=== PATIENT | female | born 1940 | race Caucasian/White ===

== ENCOUNTER → 2017-06-21 | Outpatient (REF) ==
[2017-06-21 19:35] LABS: THYROID STIMULATING HORMONE 1.18 uIU/mL (0.465-4.680)
== END ==
LOC: ZLAB.WCH 18:28
PROVIDERS: Internal Medicine
DX: Z01.89 Encounter for other specified special examinations (principal)

== ENCOUNTER → 2018-01-18 | Outpatient (REF) ==
[2018-01-18 17:46] LABS: THYROID STIMULATING HORMONE 0.948 uIU/mL (0.465-4.680)
== END ==
LOC: ZLAB.WCH 16:43
PROVIDERS: Internal Medicine
DX: Z01.89 Encounter for other specified special examinations (principal)

== ENCOUNTER → 2019-02-03 | Outpatient (REF) | LOC: ZLAB.WCH 15:21 | DX: Z01.89 Encounter for other specified special examinations (principal) ==

== ENCOUNTER → 2020-07-08 | Outpatient (CLI) | payer MEDICARE, OTHER | LOC: ZCOL.LAB 19:28 | DX: E61.1 Iron deficiency (principal); R94.6 Abnormal results of thyroid function studies; Z01.89 Encounter for other specified special examinations ==

== ENCOUNTER 2021-05-27 14:16 | Outpatient (CLI) | payer MEDICARE, OTHER ==
[~2021-05-27] VITALS: Ht 152.4 cm; Wt 69.5 kg
[2021-05-27 11:25] VITALS: BP 141/73; PULSE 101; TEMP 96.3
[2021-05-27 12:00] VITALS: BP 114/53; PULSE 91
[2021-05-27 12:15] VITALS: BP 109/94; PULSE 94
[2021-05-27 12:30] VITALS: BP 110/65; PULSE 88
[2021-05-27 12:45] VITALS: BP 120/74; PULSE 89
[2021-05-27 13:00] VITALS: BP 125/66; PULSE 89; TEMP 96.2
--- NOTE | 2021-05-27 13:10 | NUR ---
Pt tolerated infusion without issue. INT DC'd with catheter intact. She is escorted out to ED entrance with steady gait.
[~2021-05-27 14:16] MED LIST: CLARITIN 1010 MG/TAB PO; GALZIN50 MG PO; MAGNESIUM250 M1 PO; MASON NATURAL2000 IU PO; OMEGA-31 SGL PO; SELENIUM200 MC5 PO; TYLENOL 8 HR PO; VITAMIN B122500 MCG SL; VITAMINC1000TA PO
== END 2021-05-27 14:20 | disposition home or self-care (01) ==
LOC: EUO 14:16
DX: U07.1 COVID-19 (principal)
CPT/HCPCS: Q0244

== ENCOUNTER 2022-12-21 10:41 | Outpatient (CLI) | payer MEDICARE, OTHER ==
[2022-12-21] VITALS (10 sets, daily range): BP systolic 116–150; BP diastolic 76–106; PULSE 93–104; TEMP 98.4
[~2022-12-21] VITALS: Ht 152.5 cm; Wt 66.3 kg
[~2022-12-21 10:41] MED LIST changes: +VITAMIN C500 MG PO; -VITAMINC1000TA PO
[2022-12-21] MEDS ORDERED: TYLENOL 500MG500 MG PO (11:38)
[2022-12-21 11:39] LABS: HEMATOCRIT 45.8 % (37.0-47.0); MEAN CELL VOLUME 91 fl (80.0-100.0); MEAN CORPUSCULAR HEMOGLOBIN 30 pg (27-31); MEAN CORPUSCULAR HGB CONC 33 g/dl (33.0-37.0); MEAN PLATELET VOLUME 10.9 fl (7.4-10.4); PLATELET COUNT 219 K/mm3 (130-400); RED BLOOD COUNT 5.02 M/mm3 (4.10-5.30); REDCELL DISTRIBUTION WIDTH-CV 13.1 % (11.5-14.5)
[2022-12-21] MEDS ORDERED: BIOTIN10000 MC1 PO (11:42)
[2022-12-21] MEDS ORDERED: VITAMIN FLUSH-F1 CAP PO (11:44)
[2022-12-21] MEDS ORDERED: PRIL40 PO (11:45)
[2022-12-21 11:55] LABS: CALCIUM 10.1 mg/dL (8.4-10.2); CREATININE, serum 0.85 mg/dL (0.57-1.11); POTASSIUM 4.7 mmol/L (3.5-4.5)
[2022-12-21 12:02] LABS: PROTHROMBIN TIME 11.8 SECONDS (9.7-12.8)
--- NOTE | 2022-12-21 13:21 | NUR ---
Report from Connie Purcell.
--- NOTE | 2022-12-21 17:05 | NUR ---
Dr Cifuentes in to see pt.Discharge instructions given to pt.Pt verbalizes understanding.Pt escortedout via wheelchair by this nurse.
== END 2022-12-21 17:42 ==
LOC: COL.RAD 10:41
PROVIDERS: Internal Medicine Cardiovascular Disease
DX: I51.7 Cardiomegaly (principal); I34.0 Nonrheumatic mitral (valve) insufficiency; I35.1 Nonrheumatic aortic (valve) insufficiency; J84.10 Pulmonary fibrosis, unspecified
CPT/HCPCS: Q9967

== ENCOUNTER → 2023-08-01 | Outpatient (CLI) | payer MEDICARE, OTHER ==
[~2023-08-01] MED LIST changes: +BIOTIN10000 MC1 PO; +PRIL40 PO; +TYLENOL 500MG500 MG PO; +VITAMIN FLUSH-F1 CAP PO
== END ==
LOC: CANSCHCLI → COL.CARD 07:26 → COL.RAD 08:00 → COL.PUL 08:00
DX: R06.02 Shortness of breath (principal)